=== PATIENT | female | born 1950 | race Hispanic/Latino ===

== ENCOUNTER 2021-09-19 04:13 | Emergency (ER) | payer MEDICARE ==
[~2021-09-19] VITALS: Ht 162.6 cm; Wt 70.3 kg
== END 2021-09-19 04:55 | disposition home or self-care (01) ==
LOC: ER 04:19
DX: I10 Essential (primary) hypertension (principal); E78.5 Hyperlipidemia, unspecified
CPT/HCPCS: 99283